=== PATIENT | male | born 1960 | race Caucasian/White ===

== ENCOUNTER 2016-08-21 10:54 | Outpatient (CLI) ==
[2016-08-21 12:46] LABS: BASOPHILS % (AUTO) 0.6 % (0.0-3.0); EOSINOPHILS # (AUTO) 0.3 K/ul (0.0-0.7); HEMATOCRIT 40.6 % (42.0-52.0); IMMATURE GRANULOCYTE % (AUTO) 0.3 % (0.0-5.0); LYMPHOCYTES # (AUTO) 1.2 K/uL (0.60-3.4); LYMPHOCYTES % (AUTO) 16.5 (10.0-50.0); MEAN CORPUSCULAR HEMOGLOBIN 32.1 pg (27.0-31.0); MEAN CORPUSCULAR HGB CONC 34.5 (31.8-35.4); MEAN CORPUSCULAR VOLUME 93.1 fl (80.0-94.0); MONOCYTES # (AUTO) 0.5 K/uL (0.4-2.0); MONOCYTES % (AUTO) 7.3 (0-10); NEUTROPHILS % (AUTO) 71.3; PLATELET COUNT 182 10^3/uL (140-440); RED BLOOD COUNT 4.36 10^6/ul (4.70-6.10); WHITE BLOOD COUNT 6.95 K/ul (4.2-10.2)
[2016-08-21 13:33] LABS: ALBUMIN 3.6 g/dL (3.4-5.0); ANION GAP 12.2; BILIRUBIN,TOTAL 0.45 mg/dL (0.00-1.20); BUN/CREATININE RATIO 11.25; CALCIUM 9.1 mg/dL (8.2-10.2); CHOL/HDL RATIO 4.7 (4.5-6.4); CREATININE 0.8 mg/dL (0.60-1.10); POTASSIUM 4.2 mmol/L (3.5-5.1); TOTAL PROTEIN 7.2 g/dL (6.4-8.2)
[2016-08-23 07:25] LABS: RHEUMATOID ARTHRITIS FACTOR < 10.0 IU/mL (0.0-13.9)
== END 2016-08-21 10:55 | disposition home or self-care (01) ==
LOC: LAB 10:54
PROVIDERS: ATTEND Nurse Practitioner Family
DX: E75.6 Lipid storage disorder, unspecified (principal); M25.50 Pain in unspecified joint; F17.200 Nicotine dependence, unspecified, uncomplicated; Z12.5 Encounter for screening for malignant neoplasm of prostate
CPT/HCPCS: 36415; 80053; 80061; 80074; 84439; 84443; 85025; 86430

== ENCOUNTER 2017-02-06 12:27 | Outpatient (CLI) ==
--- NOTE | 2017-02-07 11:43 | US ---
EXAMINATION: Bilateral lower extremity venous Doppler, including venous insufficiency testing. HISTORY: Pain in right leg. DATE: 02/06/2017. COMPARISON: None. TECHNIQUE: Multiple sonographic images of the bilateral lower extremity deep and superficial venous systems were obtained, including Doppler analysis with compression, augmentation, and reflux interrog ation. FINDINGS: The bilateral common femoral, profunda femoral, femoral, and popliteal veins were fully compressible and had anechoic lumens, spontaneous flow, and normal augmentation. No real time reflux was demonstr ated in the bilateral common femoral or popliteal veins. The right greater saphenous vein measured up to 7 mm in diameter in the thigh and up to [address] in the calf. No real time reflux was demonstrated in the right greater saphenous vein. The right small saphenous vein measured up to 3 mm in diameter. No real time reflux was demonstrated in the right small saphenous vein. The left greater saphenous vein measured up to 4 mm in diameter in the thigh and up to 2 mm in diamet er in the calf. No real time reflux was demonstrated in the left greater saphenous vein. The left small saphenous vein measured up to 3 mm in diameter. No real time reflux was demonstrated in the left small saphenous vein. IMPRESSION: 1. No evidence of venous insufficiency in the superficial veins of the bilateral lower extremities. 2. No evidence of DVT in the bilateral lower extremities.
== END 2017-02-06 12:28 | disposition home or self-care (01) ==
LOC: RAD 12:27
PROVIDERS: ATTEND Nurse Practitioner Family
DX: M79.604 Pain in right leg (principal); M79.605 Pain in left leg

== ENCOUNTER 2017-03-08 03:22 | Inpatient (IN) ==
[2017-03-08] MEDS ORDERED: DUONEB NEB STA (03:27)
[2017-03-08] MEDS ORDERED: SODIUM CHLORIDE 1,000 ML IV STA (03:27)
[2017-03-08 03:34] VITALS: BMI 20.3
[2017-03-08] MEDS ORDERED: TORADOL IVP STA (03:34)
[2017-03-08] MEDS ORDERED: LEVAQUIN 500 MG in PREMIX 100 ML D5W 1 BAG IV STA (03:35)
[2017-03-08] MEDS ORDERED: LEVAQUIN 100 ML IV ONE (03:44)
--- NOTE | 2017-03-08 04:09 | CT ---
EXAM: CT scan thorax without contrast HISTORY: Cough fever COMPARISON: None. FINDINGS: Contiguous axial images obtained through the thorax without contrast utilizing 5-mm collim ation. Sagittal and coronal reconstructions were imaged and reviewed.. The thoracic inlet is unrema rkable. There are subcentimeter pretracheal AP window lymph nodes. Hilar structures are not well ev aluated without contrast. The ascending aorta is dilated measuring 4 cm. The descending thoracic ao rta the same level measures 2.7 cm. The heart is normal in size of this with minimal coronary artery calcification without pericardial effusion.. There are moderate emphysematous changes.. There is m inimal dependent atelectasis right lung base.. There is mild atelectasis versus developing infiltrate within the left posterior gutter region. There is no evidence of a pleural effusion.1 IMPRESSION: Ectatic ascending aorta. Normal-sized cardiac silhouette with minimal coronary artery calcification. Minimal dependent atelectasis right lung base. Mild atelectasis versus developing infiltrate left posterior gutter region. Emphysematous changes.
--- NOTE | 2017-03-08 05:20 | ED.PDOC ---
General ED Provider: Dr. ZHAO JONES-ER Chief Complaint: Shortness of Air Stated Complaint: im running a fever and im sob Time Seen by Physician: 05:18 Mode of Arrival: Wheelchair Information Source: Patient Exam Limitations: No limitations Primary Care Provider: WIN GOLDMAN Nursing and Triage Documentation Reviewed and Agree: Yes Reviewed sepsis parameters & appropriate labs ordered?: Yes System Inflammatory Response Syndrome: Temp 101F or Greater, Not Applicable Sepsis Protocol: For patient's 13 years and over: Temp is 96.8 and below OR 101 and greater Pulse >90 BPM Resp >20/minute Acutely Altered Mental Status Are patient's symptoms suggestive of a new infection, such as: -Pneumonia -Skin, Soft Tissue -Endocarditis -UTI -Bone, Joint Infection -Implantable Device -Acute Abdominal Infection -Wound Infection -Meningitis -Blood Stream Catheter Infection -Unknown Respiratory Complaint Exam - Respiratory Complaint/Exam Onset/Duration: a few hours Symptoms Are: Still present Timing: Constant Initial Severity: Moderate Current Severity: Moderate Location: Chest Character: Reports: Non-productive cough Aggravating: Reports: URI Alleviating: Reports: Bronchodilators Associated Signs and Symptoms: Reports: Dyspnea, Fever, URI, Nasal congestion, Sore throat, Decreased oral intake. Denies: Rapid breathing, Chills, Chest pain , Wheezing, Hemoptysis, Dizziness, Calf pain, Calf swelling, Edema, Hoarseness, Sinus discomfort, Vomiting, Weight loss, Increased thirst, Increased urination Related History: Reports: Similar episode History of Healthcare-Acquired Pneumonia: No Related Surgical History: Reports: None Pseudomonas Risk Factors: Reports: Chronic Lung Disease Status Asthmaticus Risk Factors: Reports: None Home Oxygen Use: No Recent Stress Test: No Recent Echo/LV Function: No Current Antibiotic Use: No Current Asthma Medication Use: No Respiratory Distress: Mild Inadequate Respiratory Effort: No Dysphagia Present: No Stridor Present: No JVD Present: No Accessory Muscle Use: No Retractions: Not Present Diminished Breath Sounds: No Sinus Tenderness: None Grunting Respirations: No Kussmaul Respirations: No Differential Diagnoses: COPD Exacerbation, Pneumonia, Influenza Non-Traumatic Chest Pain Syncope: EKG Performed Review of Systems - Review Of Systems Constitutional: Reports: Chills, Fever, Weakness Eyes: Reports: No symptoms Ears, Nose, Mouth, Throat: Reports: No symptoms Respiratory: Reports: Cough, Short of air Cardiac: Reports: No symptoms GI: Reports: No symptoms : Reports: No symptoms Musculoskeletal: Reports: No symptoms Skin: Reports: No symptoms Neurological: Reports: No symptoms Endocrine: Reports: No symptoms Hematologic/Lymphatic: Reports: No symptoms All Other Systems: Reviewed and Negative Past Medical History - Past Medical History Previously Healthy: No Endocrine: Reports: Unknown Cardiovascular: Reports: Unknown Respiratory: Reports: Unknown Hematological: Reports: Unknown Gastrointestinal: Reports: Unknown Genitourinary: Reports: Unknown Neuro/Psych: Reports: Unknown Musculoskeletal: Reports: Unknown Cancer: Reports: Unknown - Surgical History General Surgical History: Reports: Unknown - Family History Family History: Reports: Unknown - Social History Smoking Status: Current every day smoker, Heavy tobacco smoker Hx Substance Use: No Alcohol Screening: None Lives: With family - Immunizations Tetanus Shot up to Date: Yes Physical Exam - Physical Exam Appearance: Well-appearing, No pain distress, Well-nourished Eyes: BETH, EOMI, Conjunctiva clear ENT: Ears normal, Nose normal, Oropharynx normal Neck: Supple Respiratory: Rhonchi Cardiovascular: RRR, Pulses normal, No rub, No murmur GI/: Soft, Nontender, No masses, Bowel sounds normal, No Organomegaly Musculoskeletal: Normal strength, ROM intact, No edema, No calf tenderness Skin: Warm, Dry, Normal color Neurological: Sensation intact, Motor intact, Reflexes intact, Cranial nerves intact, Alert, Oriented Psychiatric: Affect appropriate, Mood appropriate Interpretation - Radiology Interpretation Radiology Interpretation By: Radiologist Radiology Results: Positive Exam Interpreted: CT Scan - EKG Interpretation Time of EKG #1: 05:21 Rate: Normal Rhythm: Sinus Ectopy: None [place]: NL ST Segment: Normal Re-Evaluation - Re-Evaluation Time of Re-Evaluation: 05:21 Status: Improved Vital Signs Stable: Yes Pain Level: 2 Appearance: NAD Lungs: Clear Skin: Warm and Dry Neuro: Alert and Oriented X3 CV: RRR Critical Care Note - Critical Care Note Total Time (mins): 0 Course - Course Hematology/Chemistry: 03/08/17 03:40 03/08/17 03:40 Orders, Labs, Meds: Lab Review 03/08/17 03/08/17 03/08/17 03:25 03:40 03:40 WBC 5.62 RBC 3.91 L Hgb 12.5 L Hct 35.9 L MCV 91.8 MCH 32.0 H MCHC 34.8 RDW Coeff of Sarah 13.2 Plt Count 134 L Immature Gran % (Auto) 0.4 Neut % (Auto) 79.0 Lymph % (Auto) 7.1 L [place] % (Auto) 12.5 H Eos % (Auto) 0.5 Baso % (Auto) 0.5 Immature Gran # (Auto) 0.0 Neut # 4.4 Lymph # 0.4 L [place] # 0.7 Eos # 0.0 Baso # 0.0 D-Dimer (Manual) Puncture Site Lb O2 Saturation 89.0 L ABG pH 7.474 H ABG pCO2 31.0 L ABG pO2 52.0 L* ABG HCO3 22.8 ABG Total CO2 24 ABG Base Excess -1 Pawan Test + FiO2 % 21.0 Sodium 133 L Potassium 3.5 Chloride 102 Carbon Dioxide 21 Anion Gap 13.5 BUN 11 Creatinine 0.76 Estimated GFR (MDRD) 107.00 BUN/Creatinine Ratio 14.47 Glucose 114 H Lactic Acid Calcium 8.4 Total Bilirubin 0.3 AST 23 ALT 13 Alkaline Phosphatase 107 Total Creatine Kinase CK-MB (CK-2) CK-MB (CK-2) % Troponin I Total Protein 6.4 Albumin 3.2 L Globulin 3.2 Albumin/Globulin Ratio 1.00 Procalcitonin Influenza A (Rapid) Influenza B (Rapid) 03/08/17 03/08/17 03/08/17 03:40 03:40 03:40 WBC RBC Hgb Hct MCV MCH MCHC RDW Coeff of Sarah Plt Count Immature Gran % (Auto) Neut % (Auto) Lymph % (Auto) [place] % (Auto) Eos % (Auto) Baso % (Auto) Immature Gran # (Auto) Neut # Lymph # [place] # Eos # Baso # D-Dimer (Manual) Puncture Site O2 Saturation ABG pH ABG pCO2 ABG pO2 ABG HCO3 ABG Total CO2 ABG Base Excess Pawan Test FiO2 % Sodium Potassium Chloride Carbon Dioxide Anion Gap BUN Creatinine Estimated GFR (MDRD) BUN/Creatinine Ratio Glucose Lactic Acid 5.9 Calcium Total Bilirubin AST ALT Alkaline Phosphatase Total Creatine Kinase CK-MB (CK-2) CK-MB (CK-2) % Troponin I Total Protein Albumin Globulin Albumin/Globulin Ratio Procalcitonin < 0.05 Influenza A (Rapid) Positive H Influenza B (Rapid) Negative 03/08/17 03/08/17 03:40 03:40 WBC RBC Hgb Hct MCV MCH MCHC RDW Coeff of Sarah Plt Count Immature Gran % (Auto) Neut % (Auto) Lymph % (Auto) [place] % (Auto) Eos % (Auto) Baso % (Auto) Immature Gran # (Auto) Neut # Lymph # [place] # Eos # Baso # D-Dimer (Manual) 589.84 Puncture Site O2 Saturation ABG pH ABG pCO2 ABG pO2 ABG HCO3 ABG Total CO2 ABG Base Excess Pawan Test FiO2 % Sodium Potassium Chloride Carbon Dioxide Anion Gap BUN Creatinine Estimated GFR (MDRD) BUN/Creatinine Ratio Glucose Lactic Acid Calcium Total Bilirubin AST ALT Alkaline Phosphatase Total Creatine Kinase 343 CK-MB (CK-2) 4.3 H CK-MB (CK-2) % 1.51280 Troponin I < 0.0100 Total Protein Albumin Globulin Albumin/Globulin Ratio Procalcitonin Influenza A (Rapid) Influenza B (Rapid) Orders Category Date Time Status ADMIT PATIENT INPATIENT .TO [facility] (MONITORED BED) ADMISSION 03/08/17 05: 33 Active ABG DRAW REQUEST Stat CARDIO 03/08/17 03:26 Completed EKG-(ED ONLY) Stat CARDIO 03/08/17 03:25 Completed NEBULIZER TREATMENT Routine CARDIO 03/08/17 05:37 Ordered NEBULIZER TREATMENT Stat CARDIO 03/08/17 03:27 Completed OXYGEN Routine CARDIO 03/08/17 05:34 Ordered ACTIVITY .BR with BRP CARE 03/08/17 05:33 Active INTAKE & OUTPUT Q8HR CARE 03/08/17 05:33 Active TELEMETRY MONITORING TELE CARE 03/08/17 05:34 Active VITAL SIGNS Q4HR CARE 03/08/17 05:33 Active REGULAR DIET DIETARY 03/08/17 Breakfast Ordered IV [ED IV/MEDIPORT/POWERPORT] .ONCE EMERGENCY 03/08/17 03:26 Active ABG Stat LAB 03/08/17 03:25 Completed BLOOD CULTURE (ED ONLY) Stat LAB 03/08/17 03:40 Received CBC W/ AUTO DIFF DAILY@0600 LAB 03/09/17 06:00 Ordered CBC W/ AUTO DIFF Stat LAB 03/08/17 03:40 Completed COMPREHENSIVE METABOLIC PANEL DAILY@0600 LAB 03/09/17 06:00 Ordered COMPREHENSIVE METABOLIC PANEL Stat LAB 03/08/17 03:40 Completed CREATINE KINASE Stat LAB 03/08/17 03:40 Completed D-DIMER Stat LAB 03/08/17 03:40 Completed LACTIC ACID Stat LAB 03/08/17 03:40 Completed MOLECULAR GROUP A STREP Stat LAB 03/08/17 03:40 Results PROCALCITONIN Stat LAB 03/08/17 03:40 Completed RAPID FLU A/B Stat LAB 03/08/17 03:40 Completed STREP SCREEN Stat LAB 03/08/17 03:40 Results TROPONIN I Stat LAB 03/08/17 03:40 Completed 0.9 % Sodium Chloride [Saline Flush] MEDS 03/08/17 03:26 Ordered 1 syr IVF PRN PRN Acetaminophen [Tylenol] MEDS 03/08/17 05:33 Ordered 650 mg PO Q4H PRN Carbamazepine [Tegretol] MEDS 03/08/17 09:00 Ordered 200 mg PO BID Cyanocobalamin (Vitamin B-12) [B-12] MEDS 03/08/17 21:00 Ordered 2,500 mcg SL BEDTIME Cyclobenzaprine HCl [Flexeril] MEDS 03/08/17 05:37 Ordered 10 mg PO TID PRN Diclofenac Sodium MEDS 03/08/17 09:00 Ordered 75 mg PO BID Enoxaparin Sodium [Lovenox] MEDS 03/08/17 09:00 Ordered 40 mg SUBCUT DAILY Gabapentin [Neurontin] MEDS 03/08/17 09:00 Ordered 100 mg PO TID Ipratropium/Albuterol Neb [Duoneb] MEDS 03/08/17 03:27 Discontinued 1 vial NEB ONCE STA Ipratropium/Albuterol Neb [Duoneb] MEDS 03/08/17 06:00 Ordered 1 vial NEB RTQ6H Ketorolac Tromethamine [Toradol] MEDS 03/08/17 03:34 Discontinued 30 mg IVP ONCE STA Levofloxacin/D5w [Levaquin] 100 ml MEDS 03/08/17 03:44 Discontinued IV .STK-MED Levofloxacin/D5w [Levaquin] 500 mg MEDS 03/08/17 09:00 Ordered Premix 100 ml D5w 1 bag IV DAILY Levofloxacin/D5w [Levaquin] 500 mg MEDS 03/08/17 03:35 Discontinued Premix 100 ml D5w 1 bag IV ONCE Methocarbamol [Methocarbamol] MEDS 03/08/17 21:00 Ordered 750 mg PO BEDTIME Oseltamivir Phosphate [Tamiflu] MEDS 03/08/17 09:00 Ordered 75 mg PO Q12HR Sodium Chloride 0.9% [Sodium Chloride] 1,000 ml MEDS 03/08/17 03:27 Discontinued IV 100 mls/hr Sodium Chloride 0.9% [Sodium Chloride] 1,000 ml MEDS 03/08/17 06:00 Ordered IV 75 mls/hr Tramadol HCl [Ultram] MEDS 03/08/17 09:00 Ordered 50 mg PO QID Vancomycin HCl [Vancomycin] 1,000 mg MEDS 03/08/17 09:00 Ordered 0.9 % Sodium Chloride [Sodium Chloride] 200 ml IV Q12HR Venlafaxine HCl MEDS 03/08/17 21:00 Ordered 75 mg PO BEDTIME RESUSCITATION STATUS Routine OTHERS 03/08/17 05:[address] CHEST W/O CONTRAST Stat RADS 03/08/17 03:27 Completed Medications Generic Name Dose Route Start Last Admin Trade Name Freq PRN Reason Stop Dose Admin Acetaminophen 650 mg 03/08/17 05:33 Tylenol PO Q4H PRN Mild Pain Albuterol/Ipratropium 1 vial 03/08/17 06:00 03/08/17 06:29 Duoneb NEB Not Given RTQ6H [facility] Carbamazepine 200 mg 03/08/17 09:00 Tegretol PO BID TIERA Cyclobenzaprine HCl 10 mg 03/08/17 05:37 Flexeril PO TID PRN Spasms Enoxaparin Sodium 40 mg 03/08/17 09:00 Lovenox SUBCUT DAILY [facility] Gabapentin 100 mg 03/08/17 09:00 Neurontin PO TID TIERA Sodium Chloride 1,000 mls @ 75 mls/hr 03/08/17 06:00 Sodium Chloride IV .[id number] TIERA Vancomycin HCl 1,000 mg/ 200 mls @ 100 mls/hr 03/08/17 09:00 Sodium Chloride IV Q12HR TIERA Levofloxacin/Dextrose 500 mg/ 100 mls @ 100 mls/hr 03/08/17 09:00 Dextrose IV DAILY TIERA Non-Formulary Medication 2,500 mcg 03/08/17 21:00 Cyanocobalamin (Vitamin B-12) [B-12] SL BEDTIME TIERA Non-Formulary Medication 75 mg 03/08/17 09:00 Diclofenac Sodium PO BID TIERA Non-Formulary Medication 750 mg 03/08/17 21:00 Methocarbamol [Methocarbamol] PO BEDTIME TIERA Non-Formulary Medication 75 mg 03/08/17 21:00 Venlafaxine Hcl PO BEDTIME TIERA Oseltamivir Phosphate 75 mg 03/08/17 09:00 Tamiflu PO Q12HR TIERA Sodium Chloride 1 syr 03/08/17 03:26 03/08/17 04:00 Saline Flush IVF 1 syr PRN PRN Administration To flush IV Tramadol HCl 50 mg 03/08/17 09:00 Ultram PO QID TIERA Discontinued Medications Generic Name Dose Route Start Last Admin Trade Name Freq PRN Reason Stop Dose Admin Albuterol/Ipratropium 1 vial 03/08/17 03:27 03/08/17 03:50 Duoneb NEB 03/08/17 03:28 1 vial ONCE STA Administration Sodium Chloride 1,000 mls @ 100 mls/hr 03/08/17 03:27 03/08/17 03:57 Sodium Chloride IV 03/08/17 13:26 100 mls/hr .Q10H STA Administration Levofloxacin/Dextrose 500 mg/ 100 mls @ 100 mls/hr 03/08/17 03:35 03/08/17 04 :01 Dextrose IV 03/08/17 04:34 100 mls/hr ONCE STA Administration Ketorolac Tromethamine 30 mg 03/08/17 03:34 03/08/17 03:58 Toradol IVP 03/08/17 03:35 30 mg ONCE STA Administration due to mr murrieta oxygen level i feel he needs admission but he refuses --he and his aware he might actually get worse and but he still refuses admission Vital Signs: Temp Pulse Resp BP Pulse Ox 03/08/17 05:23 99.1 F 76 25 H 94/58 L 95 03/08/17 03:23 101.3 F H 105 H 30 H 111/61 90 L Departure - Departure Time of Disposition: 05:23 Disposition: ADMITTED INPATIENT Discharge Problem: Influenza A Acute respiratory failure Qualifiers: Respiratory failure complication: hypoxia Qualified Code(s): J96.01 - Acute respiratory failure with hypoxia Pneumonia Qualifiers: Pneumonia type: due to unspecified organism Laterality: unspecified laterality Lung location: unspecified part of lung Qualified Code(s): J18.9 - Pneumonia, unspecified organism Condition: Stable Pt referred to PMD for follow-up: Yes Allergies/Adverse Reactions: Allergies Penicillins Allergy (Intermediate, Verified 03/08/17 03:34) Hives Home Medications: Ambulatory Orders Cyanocobalamin (Vitamin B-12) [B-12] 2,500 mcg SL BEDTIME tab-cap 08/21/16 Tramadol HCl 50 mg PO QID tab-cap 08/21/16 Diclofenac Sodium 75 mg PO BID 03/08/17 Methocarbamol 750 mg PO BEDTIME 03/08/17 Venlafaxine HCl [Effexor] 75 mg PO BEDTIME 03/08/17 Disposition Discussed With: Patient, Family
[2017-03-08] MEDS ORDERED: TYLENOL PO PRN (05:33)
[2017-03-08] MEDS ORDERED: FLEXERIL PO PRN (05:37)
[2017-03-08] MEDS: DUONEB NEB SCH ×4 (06:29→23:00)
[2017-03-08] MEDS: DICLOFENAC SODIUM PO SCH ×2 (08:52→20:14)
[2017-03-08] MEDS: NEURONTIN PO SCH ×3 (08:52→20:14)
[2017-03-08] MEDS: TAMIFLU PO SCH ×2 (08:53→20:14)
[2017-03-08] MEDS ORDERED: ULTRAM ONE (08:53)
[2017-03-08] MEDS: ULTRAM PO SCH ×4 (08:53→20:14)
[2017-03-08] MEDS: TEGRETOL PO SCH ×2 (08:53→20:14)
[2017-03-08] MEDS: VANCOMYCIN IV SCH ×2 (08:56→12:24)
[2017-03-08] MEDS ORDERED: VANCOMYCIN 1.25 GM in SODIUM CHLORIDE 250 ML IV ONE (08:56)
[2017-03-08] MEDS: SODIUM CHLORIDE IV SCH ×2 (08:56→12:24)
[2017-03-08] MEDS: LOVENOX SUBCUT SCH (08:56)
[2017-03-08] MEDS ORDERED: NON-FORMULARY MEDICATION (Diclofenac Sodium 75 MG) PO SCH (09:00)
[2017-03-08] MEDS ORDERED: VANCOMYCIN 1.25 GM in SODIUM CHLORIDE 250 ML IV SCH (10:30)
[2017-03-08] MEDS: SODIUM CHLORIDE 1,000 ML IV SCH (16:15)
[2017-03-08] MEDS: LEVAQUIN 500 MG in PREMIX 100 ML D5W 1 BAG IV SCH (20:13)
[2017-03-08] MEDS: ROBAXIN PO SCH (20:13)
[2017-03-08] MEDS ORDERED: NON-FORMULARY MEDICATION (Methocarbamol [Methocarbamol] 750 MG) PO SCH (21:00)
[2017-03-08] MEDS ORDERED: NON-FORMULARY MEDICATION (Venlafaxine Hcl 75 MG) PO SCH (21:00)
[2017-03-08] MEDS ORDERED: EFFEXOR PO SCH (21:00)
[2017-03-08] MEDS ORDERED: ROBAXIN PO SCH (21:00)
[2017-03-08] MEDS: EFFEXOR XR PO SCH (21:33)
[2017-03-08] MEDS: VANCOMYCIN 1.25 GM in SODIUM CHLORIDE 250 ML IV SCH (23:32)
[2017-03-08] MEDS: NON-FORMULARY MEDICATION (Cyanocobalamin (Vitamin B-12) [B-12] 2,500 MCG) SL SCH (23:34)
[2017-03-09] MEDS: DUONEB NEB SCH ×4 (05:15→23:03)
[2017-03-09] MEDS: VANCOMYCIN 1.25 GM in SODIUM CHLORIDE 250 ML IV SCH ×2 (08:55→21:45)
[2017-03-09] MEDS: LOVENOX SUBCUT SCH (08:56)
[2017-03-09] MEDS: NEURONTIN PO SCH ×3 (08:57→20:32)
[2017-03-09] MEDS: DICLOFENAC SODIUM PO SCH ×2 (08:57→20:33)
[2017-03-09] MEDS: TEGRETOL PO SCH ×2 (08:57→20:32)
[2017-03-09] MEDS: TAMIFLU PO SCH ×2 (08:57→20:33)
[2017-03-09] MEDS: SOLU-MEDROL 125 MG IVP SCH ×3 (08:58→20:33)
[2017-03-09] MEDS: ULTRAM PO SCH ×4 (08:58→20:33)
[2017-03-09] MEDS: SODIUM CHLORIDE 1,000 ML IV SCH ×2 (09:02)
[2017-03-09] MEDS: ROBAXIN PO SCH (20:32)
[2017-03-09] MEDS: LEVAQUIN 500 MG in PREMIX 100 ML D5W 1 BAG IV SCH (20:33)
[2017-03-09] MEDS: EFFEXOR XR PO SCH (20:33)
[2017-03-09] MEDS: NON-FORMULARY MEDICATION (Cyanocobalamin (Vitamin B-12) [B-12] 2,500 MCG) SL SCH (20:37)
[2017-03-10] MEDS: SOLU-MEDROL 125 MG IVP SCH ×3 (04:38→21:18)
[2017-03-10] MEDS: DUONEB NEB SCH ×4 (04:51→20:08)
[2017-03-10] MEDS: VANCOMYCIN 1.25 GM in SODIUM CHLORIDE 250 ML IV SCH ×2 (08:40→22:18)
[2017-03-10] MEDS: TAMIFLU PO SCH ×2 (08:41→21:20)
[2017-03-10] MEDS: ULTRAM PO SCH ×4 (08:41→21:19)
[2017-03-10] MEDS: TEGRETOL PO SCH ×2 (08:41→21:19)
[2017-03-10] MEDS: LOVENOX SUBCUT SCH (08:41)
[2017-03-10] MEDS: NEURONTIN PO SCH ×3 (08:41→21:20)
[2017-03-10] MEDS: DICLOFENAC SODIUM PO SCH ×2 (08:41→21:19)
[2017-03-10] MEDS: SODIUM CHLORIDE 1,000 ML IV SCH (18:16)
[2017-03-10] MEDS: LEVAQUIN 500 MG in PREMIX 100 ML D5W 1 BAG IV SCH (21:16)
[2017-03-10] MEDS: EFFEXOR XR PO SCH (21:19)
[2017-03-10] MEDS: ROBAXIN PO SCH (21:20)
[2017-03-10] MEDS: NON-FORMULARY MEDICATION (Cyanocobalamin (Vitamin B-12) [B-12] 2,500 MCG) SL SCH (21:24)
[2017-03-11] MEDS: SOLU-MEDROL 125 MG IVP SCH ×3 (04:19→20:37)
[2017-03-11] MEDS: DUONEB NEB SCH ×4 (04:51→23:38)
[2017-03-11] MEDS: TAMIFLU PO SCH ×2 (09:47→20:36)
[2017-03-11] MEDS: TEGRETOL PO SCH ×2 (09:47→20:37)
[2017-03-11] MEDS: ULTRAM PO SCH ×4 (09:47→20:36)
[2017-03-11] MEDS: DICLOFENAC SODIUM PO SCH ×2 (09:47→20:37)
[2017-03-11] MEDS: NEURONTIN PO SCH ×3 (09:47→20:37)
[2017-03-11] MEDS: VANCOMYCIN 1.25 GM in SODIUM CHLORIDE 250 ML IV SCH ×2 (09:48→21:44)
[2017-03-11] MEDS: LOVENOX SUBCUT SCH (09:51)
[2017-03-11] MEDS ORDERED: LEVAQUIN 100 ML IV ONE (20:31)
[2017-03-11] MEDS: LEVAQUIN 500 MG in PREMIX 100 ML D5W 1 BAG IV SCH (20:34)
[2017-03-11] MEDS: ROBAXIN PO SCH (20:35)
[2017-03-11] MEDS: EFFEXOR XR PO SCH (20:36)
[2017-03-11] MEDS: NON-FORMULARY MEDICATION (Cyanocobalamin (Vitamin B-12) [B-12] 2,500 MCG) SL SCH (20:38)
[2017-03-12] MEDS: SODIUM CHLORIDE 1,000 ML IV SCH (02:21)
[2017-03-12] MEDS: DUONEB NEB SCH ×2 (04:47→10:18)
[2017-03-12] MEDS: SOLU-MEDROL 125 MG IVP SCH (05:14)
[2017-03-12 06:05] VITALS: BP 116/63; TEMP 97.1
[2017-03-12] MEDS ORDERED: DICLOFENAC SODIUM PO SCH (09:00)
[2017-03-12] MEDS: VANCOMYCIN 1.25 GM in SODIUM CHLORIDE 250 ML IV SCH (09:23)
[2017-03-12] MEDS: NEURONTIN PO SCH (09:26)
[2017-03-12] MEDS: TEGRETOL PO SCH (09:26)
[2017-03-12] MEDS: TAMIFLU PO SCH (09:27)
[2017-03-12] MEDS: LOVENOX SUBCUT SCH (09:27)
[2017-03-12] MEDS: ULTRAM PO SCH (09:27)
--- NOTE | 2017-03-12 09:50 | DI ---
EXAM: Chest two views HISTORY: Cough, short of air COMPARISON: None TECHNIQUE: Two views of the chest were performed FINDINGS: Mild bibasilar atelectasis and/or infiltrate. Trace right pleural effusion. Lungs are hy perinflated. No visible pneumothorax. Heart normal in size. Mediastinal contour normal, noting ath erosclerosis. IMPRESSION: 1. Mild bibasilar atelectasis and/or pneumonia. 2. Trace right pleural effusion . 3. Chronic obstructive pulmonary disease.
--- NOTE | 2017-03-13 15:02 | PN ---
DATE OF SERVICE: 03/11/17 SUBJECTIVE: The patient was admitted with COPD exacerbation and flu. Still having some shortness of breath, cough, congestion. REVIEW OF SYSTEMS: CONSTITUTIONAL: No fever, no chills. HEENT: Normal. ENDOCRINE: No weight gain, no weight loss. CVS: No angina symptoms. No CHF symptoms. No palpitations. No atypical chest pain for CAD. No shortness of breath. No PND, no orthopnea. RESPIRATORY: No cough, no hemoptysis. GI: No nausea, no vomiting. No abdominal pain. : No hematuria. No polyuria. MUSCULOSKELETAL:. No joint swelling. PSYCHIATRIC: Not anxious. No depression. No suicidal thoughts. No homicidal thoughts. SKIN: Intact. No rash. PHYSICAL EXAMINATION: V/S: Blood pressure 112/72, respiratory rate 16, heart rate 72, temperature 97.4 with saturation 92%. HEENT: Normocephalic, atraumatic. Mucosa dry. Pallor positive. No icterus. NECK: Supple. No JVD, no carotid bruit. No lymphadenopathy. LUNGS: Basilar crackles and mild expiratory wheeze, Rhonchi scattered. No rales or rhonchi. HEART: S1, S2 normal. No S3. No murmur, gallop or regurgitation. ABDOMEN: Soft, nontender. Bowel sounds active. No rigidity. No rebound or guarding. No CVA tenderness. EXTREMITIES: No clubbing, cyanosis or pedal edema. MUSCULOSKELETAL: No joint swelling. NEUROLOGIC: Awake, alert, oriented times three. No focal deficit. LYMPHATIC: No lymph nodes palpable. SKIN: Intact. LABS: WBC 5.65, hgb 13.0, hct 37.3, plt count 151, sodium 138, potassium 3.8, chloride 104, bicarb 25, BUN 14, creatinine 0.69, glucose 112. ASSESSMENT: 1. COPD exacerbation 2. Hypoxemia from the exacerbation 3. Flu positive. 4. Rheumatoid arthritis 5. Depression 6. Anxiety PLAN: 1. Continue Tegretol 2. Lovenox for the DVT prophylaxis 3. DUO NEBS 4. Levofloxacin 5. Vancomycin 6. IV fluids TIME SPENT: More than 35 minutes MTDD
--- NOTE | 2017-03-13 15:08 | PN ---
DATE OF SERVICE: 03/10/17 SUBJECTIVE: The patient was admitted with hypoxemic respiratory failure, flu positive and pneumonia. Still coughing and congestion. Left sided rattling per patient. REVIEW OF SYSTEMS: CONSTITUTIONAL: No fever, no chills. HEENT: Normal. ENDOCRINE: No weight gain, no weight loss. CVS: No angina symptoms. No CHF symptoms. No palpitations. No atypical chest pain for CAD. No shortness of breath. No PND, no orthopnea. RESPIRATORY: No cough, no hemoptysis. GI: No nausea, no vomiting. No abdominal pain. : No hematuria. No polyuria. MUSCULOSKELETAL:. No joint swelling. PSYCHIATRIC: Not anxious. No depression. No suicidal thoughts. No homicidal thoughts. SKIN: Intact. No rash. PHYSICAL EXAMINATION: V/S: Blood pressure 106/58,. respiratory rate 18, heart rate 64, temperature 97.8 with saturation 94 on the room air. GENERAL: Sick looking man lying in a bed. HEENT: Normocephalic, atraumatic. Mucosa dry. Pallor positive. No icterus. NECK: Supple. No JVD, no carotid bruit. No lymphadenopathy. LUNGS: Basilar crackles left more than the right. Clear to auscultation. No rales or rhonchi. HEART: S1, S2 normal. No S3. No murmur, gallop or regurgitation. ABDOMEN: Soft, nontender. Bowel sounds active. No rigidity. No rebound or guarding. No CVA tenderness. EXTREMITIES: No clubbing, cyanosis or pedal edema. MUSCULOSKELETAL: No joint swelling. NEUROLOGIC: Awake, alert, oriented times three. No focal deficit. LYMPHATIC: No lymph nodes palpable. SKIN: Intact. LABS: WBC 4.02, hgb 11.8, hct 34.5, plt count 170, sodium 134, potassium 3.8, chloride 103, bicarb 22, BUN 10, creatinine 0.70. ASSESSMENT: 1. Hypoxemic respiratory failure 2. Community acquired pneumonia 3. Influenza A positive 4. Anemia 5. Rheumatoid arthritis 6. History of asthma 7. Depression 8. Anxiety PLAN: 1. Continue Lovenox for the DVT prophylaxis 2. DUO NEBS 3. Solu-Medrol 80mg Q 8 hours 4. Tamiflu 5. Vancomycin 6. Levofloxacin. TIME SPENT: More than 35 minutes MTDD
--- NOTE | 2017-04-01 13:18 | HP ---
DATE OF SERVICE: 03/08/17 CHIEF COMPLAINT: Shortness of breath. HISTORY OF PRESENT ILLNESS: This is a 56 year old male who has been sick for four to five days with body aches, fever, chills, cough and congestion. He is getting a little green phlegm and shortness of breath. Gradually, the shortness of breath was getting worse and last night the patient was at the gas station and passed out. The shortness of breath was gradually getting worse. He also been having leg edema for six months. Right now he has a fever of 101.7. Body aches, nonproductive cough, hurting all over. Sometimes the productive cough is a little green. Temperature in the emergency room was 101.3. Dr. Burr saw the patient. Initial evaluation showed hemoglobin of 12.5, monocytes high, D Dimer elevated at 589. ABG showed the pH 7.474, PCO2 31.0, PO2 52. Influenza A positive. CT of the chest done without contrast which shows mild atelectasis versus developing infiltrate left posterior gutter region. Emphysematous changes. At that time, the patient is being admitted to the hospital with hypoxemia, respiratory failure, COPD exacerbation secondary to the influenza and community acquired pneumonia of the left lower lobe. REVIEW OF SYSTEMS: Weakness, tiredness CONSTITUTIONAL: Fever, chills and body pains. HEENT: Normal. ENDOCRINE: No weight gain; no weight loss. CVS: No chest pain. No PND, no orthopnea. Shortness of breath. No PND, no orthopnea. RESPIRATORY: Cough and congestion. No hemoptysis. GI: No nausea, no vomiting. No abdominal pain. No melena. : No hematuria. No polyuria. MUSCULOSKELETAL: No joint swelling. PSYCHIATRIC: Not anxious. No depression. No suicidal thoughts. No homicidal thoughts. SKIN: Intact, no open lesions. PAST MEDICAL HISTORY: History of heart murmur Asthmatic bronchitis Rheumatoid arthritis Depression Anxiety PAST SURGICAL HISTORY: None. PERSONAL HISTORY: . is with him in the room. No alcohol and no drugs. HOME MEDICATIONS: Tramadol, Vitamin B12, Albuterol, Carbamazepine, Neurontin, Cyclobenzaprine, Methocarbamol, Diclofenac and Effexor. ALLERGIES: Allergic to Penicillin. FAMILY HISTORY: Significant for the heart problems. PHYSICAL EXAMINATION: GENERAL: Sick looking man lying in the bed in discomfort. V/S: Temperature 101.3, saturation 90 on 2 liters, respiratory rate 30, heart rate 105. HEENT: Atraumatic, normocephalic. No scleral icterus. Pallor positive. Mucosa dry. NECK: Supple. No JVD, no bruit. No lymphadenopathy. No thyromegaly. HEART: S1, S2 normal. No murmur. No cyanosis or clubbing. No ascites. LUNGS: Basilar crackles, mild expiratory wheeze. No rales or rhonchi. ABDOMEN: Soft, nontender. Bowel sounds are active. No CVA tenderness. No rigidity or guarding. EXTREMITIES: No cyanosis, clubbing or pedal edema. MUSCULOSKELETAL: Normal joints, no swelling. NEUROLOGIC: The patient is awake, alert and oriented times three. No motor deficit. SKIN: Intact; no open lesions. LYMPHATIC: No lymph nodes palpable. LABS: Serology, influenza A positive. Sodium 133, potassium 3.5, chloride 102 , bicarb 21, BUN 11, creatinine 0.76. ABG's as said, pH 7.474, PCO2 31.0, PO2 52, white count 5.62, hemoglobin 12.5, hematocrit 35.9, platelet count 134. ASSESSMENT: 1. HYPOXEMIC RESPIRATORY FAILURE 2. COPD EXACERBATION SECONDARY TO PNEUMNIA AND INFLUENZA A 3. ANEMIA 4. OSTEOARTHRITIS 5. RHEUMATOID ARTHRITIS 6. DEHYDRATION PLAN: 1. Admit the patient to the regular floor. 2. CBC, CMP today and daily. 3. Cardiac enzymes and Troponin. 4. Breathing treatments, Solu-Medrol. 5. Tamiflu. 6. Levofloxacin. 7. IV fluids. 8. Vancomycin. 9. In view of the pneumonia and the flu staph and lung infections are more common, so we will be covering him with Vancomycin too. TIME SPENT: MORE THAN 75 minutes and this is critical care time. [facility]
--- NOTE | 2017-04-01 13:27 | PN ---
DATE OF SERVICE: 03/09/17 SUBJECTIVE: The patient was admitted with respiratory failure, pneumonia and influenza A positive. He is still coughing with congestion and weak, hurting in the legs. PHYSICAL EXAMINATION: GENERAL: Sick looking man lying in the bed. V/S: Blood pressure 117/71, respiratory rate 18, heart rate 72, temperature 98.2 , saturation 94. HEENT: Normocephalic, atraumatic. Mucosa dry. Pallor positive. No icterus. NECK: Supple. No JVD, no carotid bruit. No lymphadenopathy. LUNGS: Decreased basilar crackles. Mild expiratory wheeze. No rales or rhonchi. HEART: S1, S2 normal. No S3. No murmur, gallop or regurgitation. ABDOMEN: Soft, nontender. Bowel sounds active. No rigidity. No rebound or guarding. No CVA tenderness. EXTREMITIES: No clubbing, cyanosis or pedal edema. MUSCULOSKELETAL: No joint swelling. NEUROLOGIC: Awake, alert, oriented times three. No focal deficit. LYMPHATIC: No lymph nodes palpable. SKIN: Intact. LABS: White count 4.02, hemoglobin 11.8, hematocrit 34.5, platelet count 117, sodium 134, potassium 3.8, chloride 103, bicarb 22, BUN 10, creatinine 0.70, glucose 87. ASSESSMENT: 1. ACUTE HYPOXEMIC RESPIRATORY FAILURE SECONDARY TO INFLUENZA A AND COMMUNITY ACQUIRED PNEUMONIA 2. ANEMIA 3. DEPRESSION 4. OSTEOARTHRITIS 5. RHEUMATOID ARTHRITIS PLAN: 1. Continue the Levofloxacin, Tamiflu, Tramadol, Vancomycin. 2. IV fluids. 3. Lovenox for the DVT prophylaxis. 4. Will follow up with the patient in daily rounds. 5. Will start the patient on Solu-Medrol 60 every 8 hours. TIME SPENT: More than 35 minutes MTDD
--- NOTE | 2017-04-02 11:39 | DS ---
DATE OF SERVICE: 03/12/17 FINAL DIAGNOSIS: 1. CHRONIC OBSTRUCTIVE PULMONARY DISEASE EXACERBATION SECONDARY TO THE BILATERAL BASILAR PNEUMONIA AND INFLUENZA A POSITIVE 2. HYPOXEMIA 3. HISTORY OF RHEUMATOID ARTHRITIS 4. ANXIETY 5. DEPRESSION 6. CARDIAC MURMUR PLAN: 1. Discharge the patient home. 2. New medications: Levaquin 500 mg twice a day for three more days Prednisone 10 mg twice a day for seven days 3. Continue home medications which are Albuterol inhaler, Carbamazepine, Cyclobenzaprine, Diclofenac, Neurontin, Methocarbamol, Tramadol. 4. Diet: Cardiac and healthy. 5. Activity: As much as tolerated. DISEASE SPECIFIC EDUCATION: COPD, pneumonia, need of pneumonia vaccination was discussed. He verbalized understanding. HOSPITAL COURSE: Ryan Sharma who came to the emergency room with cough, congestion, shortness of breath and found to be in acute hypoxemic respiratory failure with a pH of 7.474, PCO2 31.0, PO2 52. Flu serology was positive for the A. Bibasilar pneumonia was present. The patient was admitted to the hospital and started on Levofloxacin IV, Tamiflu, Solu-Medrol, breathing treatments of DuoNebs was given. With the given IV fluids, antibiotics, breathing treatments and steroids, the patient started feeling better. He was up and about walking. Shortness of breath was getting better. He was able to walk more. BUN and creatinine was normal. White count was normal. Repeat chest x-ray was done today, which did show some basilar infiltrate, but better than it was. Clinically, the patient was a lot improved. No more fever and less short of breath. At that time, the patient is being discharged to home today on Levaquin and Prednisone. Advised to not smoke. Will follow up with the patient in the [facility] within 5-7 days. TIME SPENT: MORE THAN 65 TO 70 MINUTES MTDD
== END 2017-03-12 13:15 | disposition home or self-care (01) | DRG 189 ==
LOC: ED 03:22 → MEDSURG A 05:40
PROVIDERS: ADMIT Emergency Medicine; ATTEND Emergency Medicine
DX: J96.01 Acute respiratory failure with hypoxia (principal); J10.08 Influenza due to other identified influenza virus with other specified pneumonia; J18.9 Pneumonia, unspecified organism; J44.1 Chronic obstructive pulmonary disease with (acute) exacerbation; J44.0 Chronic obstructive pulmonary disease with (acute) lower respiratory infection; R06.02 Shortness of breath; R50.9 Fever, unspecified; F41.8 Other specified anxiety disorders; R01.1 Cardiac murmur, unspecified; D64.9 Anemia, unspecified; M19.90 Unspecified osteoarthritis, unspecified site; M47.9 Spondylosis, unspecified; M06.9 Rheumatoid arthritis, unspecified; F17.200 Nicotine dependence, unspecified, uncomplicated; Z79.899 Other long term (current) drug therapy
CPT/HCPCS: 36415; 80053; 80202; 82550; 82553; 82803; 83605; 84145; 84484; 85025; 85379; 87040; 87651; 87804; 87880; 93005; 93010; 94640; 96361; 96365; 96375; 99284

== ENCOUNTER 2017-05-27 13:47 | Outpatient (CLI) ==
--- NOTE | 2017-05-27 14:54 | CT ---
EXAM: CT scan of the abdomen and pelvis without contrast HISTORY: Right lower quadrant pain TECHNIQUE: Imaging of the abdomen pelvis was performed without contrast. 5 mm thin axial images and coronal and sagittal reconstructions were provided for interpretation. Comparison none. FINDINGS: The liver, spleen, kidneys appear normal. The proximal ureters are normal size. The smal l and large bowel loops are normal caliber. The appendix was not well seen. No obvious inflammatory changes are seen in the right lower quadrant. The helical images obtained through the pelvis demonstrate a normal appearance of the rectum, urinary bladder. There is no free fluid seen within the pelvis. No acute abnormalities are seen within the anterior abdominal wall. Lung bases are clear. No lytic or blastic lesions are seen within the oss eous structures. IMPRESSION: The evaluation was limited and the appendix was not seen. The evaluation was also limite d due to the lack of contrast. Within these limitations, there is no bowel obstruction or acute inflammatory change seen within the abdomen and pelvis. There is no ureteral obstruction. If the patients symptoms persist, repeat CT scan of the abdomen and pelvis can be performed with IV a nd oral contrast.
--- NOTE | 2017-05-27 15:12 | DI ---
EXAM: Four views of the left knee HISTORY: Pain TECHNIQUE: AP, tunnel, lateral and sunrise views of the left knee were obtained. FINDINGS: No acute fractures are seen. The joint spaces are normal. There is no joint effusion. T he patella appears normal. IMPRESSION: No acute abnormalities are seen within the left knee.
--- NOTE | 2017-05-27 15:17 | DI ---
EXAM: Four views of the right knee. History: Right knee pain. Findings: No acute fracture or dislocation. No abnormal calcifications or radiopaque foreign bodies . Joint spaces are preserved. Impression: Unremarkable exam
== END 2017-05-27 13:48 | disposition home or self-care (01) ==
LOC: RAD 13:47
PROVIDERS: ATTEND Emergency Medicine
DX: R10.31 Right lower quadrant pain (principal); M25.561 Pain in right knee; M25.562 Pain in left knee; G89.29 Other chronic pain; D50.8 Other iron deficiency anemias
CPT/HCPCS: 36415; 82607; 82728; 82746; 83540; 83550; 84466; 85025; 85045

== ENCOUNTER 2017-07-10 11:44 | Outpatient (CLI) ==
--- NOTE | 2017-07-10 14:18 | DI ---
EXAM: Radiographs, lumbar spine HISTORY: Lumbar spondylosis. COMPARISON: None available. TECHNIQUE: Three views. FINDINGS: Mild right convex curvature centered near L3-4. Alignment is normal. Vertebral body heig hts are maintained. There is severe loss of disc height along the right side of L2-3 and left-side o f L3-4 with moderate loss of disc height at L4-5 and L5-S1 with associated endplate osteophyte format ion. Multilevel facet arthropathy noted. No fracture identified. Sacral arcuate lines intact. Sof t tissues are unremarkable. IMPRESSION: Moderate to severe multilevel degenerative disc disease.
== END 2017-07-10 11:45 | disposition home or self-care (01) ==
LOC: RAD 11:44
PROVIDERS: ATTEND Emergency Medicine
DX: M47.26 Other spondylosis with radiculopathy, lumbar region (principal)

== ENCOUNTER 2017-07-11 06:46 | Emergency (ER) ==
[2017-07-11 06:52] VITALS: BP 152/93; TEMP 98; BMI 21.7
[2017-07-11] MEDS ORDERED: BOOSTRIX IM ONE (07:24)
[2017-07-11] MEDS ORDERED: LIDOCAINE HCL 1% SDV SUBCUT STA (07:24)
--- NOTE | 2017-07-11 07:24 | ED.PDOC ---
General ED Provider: Dr. ZHAO WILL Chief Complaint: Hand Laceration Stated Complaint: CC:Injured My Left Hand: HPI:PATIENT STATES HE TRIPPED WALKING OUTSIDE OF HIS HOME AND FELL WITH HIS LEFT HAND OUTSTRETCHED AND SUSTATINGED A LACERATION TO THE PALM OF HIS LEFT HAND. HE STATES THERE APPARENTLY A METAL SPIKE IN THE GROUND HE WAS UNAWARE OF THAT IMPALED THIS HAND. STATES THE WOUND WAS BLEEDING PROFUSELY. HE CONTROLLED THS BLEEDING WITH DIRECT PRESSURE. HE INSPECTED THE WOUND AND FOUND A SMALL PIECE OF METAL WHICH REMOVED. INSPECTION REVEAL THE WOUND TO BE DRY, SUPERFICIAL AND MEASUREING APPROXIMATELY 6 CM LACERTION ON THE INNER ASPECT OF THE PALM OF HIS LEFT HAND.\ BLEEDING CONTROLLED. LAST TETANUS SHOT WAS APPROXIMATELY 8 YEARS AGO. Time Seen by Physician: 07:05 Mode of Arrival: Walk-In Information Source: Patient Exam Limitations: No limitations Primary Care Provider: AMAUR[facility] Nursing and Triage Documentation Reviewed and Agree: Yes Reviewed sepsis parameters & appropriate labs ordered?: No System Inflammatory Response Syndrome: Not Applicable Sepsis Protocol: For patient's 13 years and over: Temp is 96.8 and below OR 101 and greater Pulse >90 BPM Resp >20/minute Acutely Altered Mental Status Are patient's symptoms suggestive of a new infection, such as: -Pneumonia -Skin, Soft Tissue -Endocarditis -UTI -Bone, Joint Infection -Implantable Device -Acute Abdominal Infection -Wound Infection -Meningitis -Blood Stream Catheter Infection -Unknown System Inflammatory Response Syndrome: Not Applicable Review of Systems - Review Of Systems Constitutional: Reports: No symptoms Eyes: Reports: No symptoms Ears, Nose, Mouth, Throat: Reports: No symptoms Respiratory: Reports: No symptoms Cardiac: Reports: No symptoms GI: Reports: No symptoms : Reports: No symptoms Musculoskeletal: Reports: No symptoms, Other (LT HAND PAIN ) Skin: Reports: No symptoms, Other (LACERATION ) Neurological: Reports: No symptoms Endocrine: Reports: No symptoms Hematologic/Lymphatic: Reports: No symptoms All Other Systems: Reviewed and Negative Past Medical History - Past Medical History Previously Healthy: Yes Endocrine: Reports: Unknown Cardiovascular: Reports: Unknown Respiratory: Reports: Unknown Hematological: Reports: Unknown Gastrointestinal: Reports: Unknown Genitourinary: Reports: Unknown Neuro/Psych: Reports: Unknown Musculoskeletal: Reports: Unknown Cancer: Reports: Unknown - Surgical History General Surgical History: Reports: Unknown - Family History Family History: Reports: Unknown - Social History Smoking Status: Current every day smoker, Heavy tobacco smoker Hx Substance Use: No Alcohol Screening: Occasionally - Immunizations Tetanus Shot up to Date: No (8 YEARS AGO) Physical Exam - Physical Exam Appearance: Well-appearing, No pain distress, Well-nourished Ill-appearing: None Pain Distress: Mild Eyes: BETH, EOMI, Conjunctiva clear ENT: Ears normal, Nose normal, Oropharynx normal Respiratory: Airway patent, Breath sounds clear, Breath sounds equal, Respirations nonlabored Cardiovascular: RRR, Pulses normal, No rub, No murmur GI/: Soft, Nontender, No masses, Bowel sounds normal, No Organomegaly Musculoskeletal: Normal strength (LACERATON MEASURING APPROXIMATELY 6 CM FROM PROXIMAL PALM NEAR ULNAR CARPAL JOINT EXTENDING DOWN LATERAL PALM), ROM intact, No edema, No calf tenderness Skin: Warm, Dry, Normal color Neurological: Sensation intact, Motor intact, Reflexes intact, Cranial nerves intact, Alert, Oriented Psychiatric: Affect appropriate, Mood appropriate Procedures - Laceration/Wound Repair lt hand Wound Description: Linear Wound Length (cm): 6 cm Wound Width: 2mm Wound Depth: 2mm Wound Explored: Clean Wound Irrigated: Yes Wound Prep: Saline, Hibiclens, Betadine, Scrub Anesthesia: Lidocaine Wound Repaired With: Sutures Suture Size and Type: 4-0 prolene Number of Sutures: 8 Sterile Dressing Applied?: Yes Splint Applied?: No Sling Applied?: No Re-Evaluation - Re-Evaluation Time of Re-Evaluation: 09:30 Status: Improved Vital Signs Stable: Yes Appearance: NAD Lungs: Clear Skin: Warm and Dry Neuro: Alert and Oriented X3 CV: RRR Additional Comments: Results of Imaging discussed Critical Care Note - Critical Care Note Total Time (mins): 30 Course - Course Orders, Labs, Meds: Orders Category Date Time Status Diphth,Pertuss(Acell),Tet Vac [Boostrix] MEDS 07/11/17 07:24 Discontinued 0.5 ml IM .ONCE ONE Lidocaine HCl/Pf [Lidocaine HCl 1% Sdv] MEDS 07/11/17 07:24 Discontinued 5 ml SUBCUT ONCE STA CT HAND LEFT WITHOUT CONTRAST Stat RADS 07/11/17 08:12 Completed HAND, LEFT 3 VIEWS Stat RADS 07/11/17 07:25 Completed Medications Discontinued Medications Generic Name Dose Route Start Last Admin Trade Name Freq PRN Reason Stop Dose Admin Diphtheria/Pertussis/Tetanus Vacc 0.5 ml 07/11/17 07:24 07/11/17 07:39 Boostrix IM 07/11/17 07:25 0.5 ml .ONCE ONE Administration Lidocaine HCl 5 ml 07/11/17 07:24 07/11/17 07:49 Lidocaine Hcl 1% Sdv SUBCUT 07/11/17 07:25 5 ml ONCE STA Administration Vital Signs: Temp Pulse Resp BP Pulse Ox 07/11/17 06:46 98 F 63 15 152/93 H 98 Departure - Departure Time of Disposition: 10:00 Disposition: HOME SELF-CARE Discharge Problem: Hand laceration Instructions: Laceration (ED) Condition: Good Pt referred to PMD for follow-up: Yes (1 week) IPMP verified?: No Additional Instructions: Follow wound care instructions Take antibiotics as directed Take Tylenol or advil as needed for pain Have sutures rechecked in next 7 days Allergies/Adverse Reactions: Allergies Penicillins Allergy (Intermediate, Verified 07/11/17 06:51) Hives Home Medications: Ambulatory Orders Cyanocobalamin (Vitamin B-12) [B-12] 2,500 mcg SL BEDTIME tab-cap 08/21/16 Cephalexin [Keflex] 500 mg PO BID #14 capsule 07/11/17 Disposition Discussed With: Patient, Family Musculoskeletal Complaint Exam - Hand/Wrist Complaint/Exam Location of Pain: Reports: Left, Hand Mechanism of Injury: Reports: Trauma (SEE CC/HPI) Onset/Duration: EARLIER THIS AM Symptoms Are: Still present Onset of Pain: Reports: Immediate Initial Severity: Moderate Current Severity: Mild Location: Reports: Discrete Character: Reports: Sharp, Burning Alleviating: Reports: Elevation Aggravating: Reports: Movement Associated Signs and Symptoms: Denies: Swelling, Redness, Bruising, Fever, Weakness, Numbness, Tingling Hand/Wrist Findings: Present: Swelling, Laceration Tenderness: Absent: Radius, Ulna, Carpal, Metacarpal, Phalanx Compartment Syndrome Risk Factors: Present: Pain Differential Diagnoses: Other (LACERATON )
--- NOTE | 2017-07-11 07:54 | DI ---
EXAM: LEFT HAND THREE VIEWS HISTORY: Laceration, concern for metallic foreign body FINDINGS: No comparison. No fracture or dislocation is identified. Metallic rings were left in plac e fourth digit. There are two nearly contiguous, in-line wire like metallic densities superimposed over the palmar as pect of the fifth digit, general level of the middle phalanx and proximal interphalangeal joint. One 6 mm in length and the other 5 mm. Palmar aspect of the lateral hand has a 2 x 0.6 mm metallic foreign body. There is a punctate wire like density at the lateral aspect of the thumb within the soft tissues near the distal aspect of the proximal phalanx measuring about 2 mm in length. IMPRESSION: Four foreign bodies suspected within the soft tissues. No fracture.
--- NOTE | 2017-07-11 09:01 | CT ---
EXAM: CT of the left hand without contrast History: Left hand laceration and trauma. Comparison: Left hand radiograph 07/11/2017 Technique: Multiplanar CT images through the left hand were obtained without the administration of I V contrast. Findings: No acute fracture or dislocation. Severe narrowing of the first carpal metacarpal joint. No evidence for osteomyelitis. There is subcutaneous edema involving the palmar surface of the hand with subcutaneous air seen along the palmar aspect of the proximal fifth metacarpal. No focal fluid collections identified to suggest abscess. There are two wire like soft tissue foreign bodies superi mposed over the palmar aspect of the fifth digit measuring 6 mm and 5 mm in length. 2 mm x 6 mm meta llic foreign body just beneath the skin of the first webspace. 2 mm radiopaque foreign body just bene ath the skin of the thumb interphalangeal joint region. These are unchanged compared to the prior x- ray. Impression: 1. No acute fracture or dislocation. 2. Soft tissue laceration involving the lateral aspect of the palm. 3. Soft tissue foreign bodies. 5. 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
== END 2017-07-11 10:07 | disposition home or self-care (01) ==
LOC: ED 06:46
DX: S61.412A Laceration without foreign body of left hand, initial encounter (principal); W19.XXXA Unspecified fall, initial encounter; F17.210 Nicotine dependence, cigarettes, uncomplicated
CPT/HCPCS: 90471; 90715; 99283

== ENCOUNTER 2017-10-08 16:14 | Outpatient (CLI) | END 2017-10-08 16:15 | disposition home or self-care (01) | LOC: RHC-LAB 16:14 | PROVIDERS: ATTEND Emergency Medicine | DX: F33.1 Major depressive disorder, recurrent, moderate (principal); M47.26 Other spondylosis with radiculopathy, lumbar region; D50.8 Other iron deficiency anemias; J44.9 Chronic obstructive pulmonary disease, unspecified; M25.561 Pain in right knee; G89.29 Other chronic pain | CPT/HCPCS: 36415; 80053; 80061; 84443; 85025 ==

== ENCOUNTER 2018-01-17 12:07 | Outpatient (CLI) | END 2018-01-17 12:08 | disposition home or self-care (01) | LOC: RHC-LAB 12:07 | PROVIDERS: ATTEND Nurse Practitioner Family | DX: Z12.5 Encounter for screening for malignant neoplasm of prostate (principal); E78.5 Hyperlipidemia, unspecified | CPT/HCPCS: 36415; 80053; 80061 ==

== ENCOUNTER 2018-04-24 12:18 | Outpatient (CLI) | END 2018-04-24 12:19 | disposition home or self-care (01) | LOC: RHC-LAB 12:18 | PROVIDERS: ATTEND Nurse Practitioner Family | DX: E78.5 Hyperlipidemia, unspecified (principal) | CPT/HCPCS: 36415; 80053; 80061; 85025 ==

== ENCOUNTER 2018-04-25 10:23 | Outpatient (CLI) ==
--- NOTE | 2018-04-25 11:19 | US ---
EXAM: Ultrasound groin pain, right. HISTORY: Right groin pain for 6 months, history of right hernia repair 7 years back. FINDINGS / IMPRESSION: Andersen-scale ultrasound and color Doppler imaging was performed in the region o f interest described as the right groin. No convincing ultrasound evidence of abdominal wall defect or hernia. Underlying small bowel was not ed. If concern is persistent, consider correlation with CT.
== END 2018-04-25 10:24 | disposition home or self-care (01) ==
LOC: RAD 10:23
PROVIDERS: ATTEND Nurse Practitioner Family
DX: D64.9 Anemia, unspecified (principal); R10.31 Right lower quadrant pain
CPT/HCPCS: 36415; 76882; 82607; 82728; 82746; 83540; 83550; 84466; 85045

== ENCOUNTER 2018-07-17 08:04 | Outpatient (CLI) | END 2018-07-17 08:05 | disposition home or self-care (01) | LOC: RHC-LAB 08:04 | PROVIDERS: ATTEND Nurse Practitioner Family | DX: M54.9 Dorsalgia, unspecified (principal); G89.29 Other chronic pain; E78.5 Hyperlipidemia, unspecified | CPT/HCPCS: 36415; 80053; 80061; 85025 ==

== ENCOUNTER 2018-07-30 10:10 | Outpatient (CLI) ==
--- NOTE | 2018-07-30 10:43 | US ---
EXAM: Ultrasound right axilla HISTORY: Sebaceous cyst COMPARISON: None FINDINGS: Ultrasound right axilla was performed. Several axillary lymph nodes measuring up to 0.7 x 1.4 x 1.4 cm with normal fatty hilum. IMPRESSION: Mild right axillary lymphadenopathy. Lymph nodes demonstrates normal architecture. Fin dings are nonspecific. Recommend follow-up.
== END 2018-07-30 10:11 | disposition home or self-care (01) ==
LOC: RAD 10:10
PROVIDERS: ATTEND Nurse Practitioner Family
DX: L72.3 Sebaceous cyst (principal)
CPT/HCPCS: 76882